=== PATIENT | male | born 1950 | race Caucasian/White ===

== ENCOUNTER 2017-06-16 09:42 | Day surgery (SDC) | payer BC ==
[~2017-06-16] VITALS: Ht 182.9 cm; Wt 104.3 kg
[~2017-06-16 09:42] MED LIST: BENICAR HCT 401 EAC1 PO; FLONASE16 G1 BOTH NARES; GLUCOPHAGE1000 MG PO; LO-DOSE ASPIRIN81 M1 PO; MOBIC15 MG PO; NASAL ALLERGY16.9 ML BOTH NARES; NEURONTIN300 MG PO; NORCO 5/3251 TABLET PO; PRILOSEC20 MG PO; REQUIP1 MG PO; ZOCOR20 MG PO
[2017-06-16 10:06] VITALS: BP 141/79
[2017-06-16 13:25] VITALS: BP 140/69
== END 2017-06-16 14:55 | disposition home or self-care (01) ==
LOC: SDC 09:42
PROVIDERS: Internal Medicine
DX: H33.012 Retinal detachment with single break, left eye (principal); I10 Essential (primary) hypertension; E78.2 Mixed hyperlipidemia; E11.21 Type 2 diabetes mellitus with diabetic nephropathy; M19.90 Unspecified osteoarthritis, unspecified site; E66.9 Obesity, unspecified; Z68.34 Body mass index [BMI] 34.0-34.9, adult; Z83.3 Family history of diabetes mellitus; Z80.51 Family history of malignant neoplasm of kidney
CPT/HCPCS: 82948; J0690

== ENCOUNTER 2017-07-03 11:47 | Day surgery (SDC) | payer BC ==
[~2017-07-03] VITALS: Ht 182.9 cm; Wt 104.3 kg
[2017-07-03 12:39] VITALS: BP 131/70
[2017-07-03 17:26] VITALS: BP 120/70
[2017-07-03 17:59] VITALS: BP 150/70
== END 2017-07-03 18:03 | disposition home or self-care (01) ==
LOC: SDC 11:47
PROVIDERS: Ophthalmology
DX: E11.319 Type 2 diabetes mellitus with unspecified diabetic retinopathy without macular edema (principal); H33.022 Retinal detachment with multiple breaks, left eye; E11.21 Type 2 diabetes mellitus with diabetic nephropathy; I10 Essential (primary) hypertension; E66.9 Obesity, unspecified; Z68.31 Body mass index [BMI] 31.0-31.9, adult; E78.5 Hyperlipidemia, unspecified; Z88.6 Allergy status to analgesic agent; Z79.84 Long term (current) use of oral hypoglycemic drugs
CPT/HCPCS: 82948; J0330; J0690; J0713; J2405; J3010

== ENCOUNTER 2017-08-25 07:52 | Day surgery (SDC) | payer BC ==
[~2017-08-25] VITALS: Ht 180.3 cm; Wt 108.8 kg
[2017-08-25 08:54] VITALS: BP 125/70
[2017-08-25 12:20] VITALS: BP 125/60
== END 2017-08-25 12:28 | disposition home or self-care (01) ==
LOC: SDC 07:52
PROVIDERS: Internal Medicine
DX: E11.3532 Type 2 diabetes mellitus with proliferative diabetic retinopathy with traction retinal detachment not involving the macula, left eye (principal); M19.90 Unspecified osteoarthritis, unspecified site; I10 Essential (primary) hypertension; E66.9 Obesity, unspecified; E78.2 Mixed hyperlipidemia; G25.81 Restless legs syndrome; Z79.84 Long term (current) use of oral hypoglycemic drugs
CPT/HCPCS: 82948; 85049; J0690